=== PATIENT | female | born 1970 | race Caucasian/White ===

== ENCOUNTER 2021-02-13 11:06 | Day surgery (SDC) | payer OTHER ==
[2021-02-13 11:30] VITALS: TEMP 98.5
[2021-02-13] MEDS ORDERED: FERRIC CARBOXYMALTOSE 750 MG in SODIUM CHLORIDE 250 ML IVPB ONE (11:45)
[2021-02-13 13:30] VITALS: BP 150/69; PULSE 70
== END 2021-02-13 13:32 | disposition home or self-care (01) ==
LOC: FINFUSION 11:06 → FM/S 11:09 → FINFUSION 13:32
PROVIDERS: ATTEND Psychiatry & Neurology Psychiatry
PROC: 3E033GC Introduction of Other Therapeutic Substance into Peripheral Vein, Percutaneous Approach (ICD-10-PCS; principal; 2021-02-13)
DX: D50.9 Iron deficiency anemia, unspecified (principal)
CPT/HCPCS: 96365; J1439

== ENCOUNTER 2021-02-25 11:00 | Day surgery (SDC) | payer OTHER ==
[2021-02-25 11:34] VITALS: TEMP 97.5
[2021-02-25] MEDS ORDERED: FERRIC CARBOXYMALTOSE 750 MG in SODIUM CHLORIDE 250 ML IVPB ONE (12:00)
[2021-02-25 13:37] VITALS: BP 140/71; PULSE 60
== END 2021-02-25 14:05 | disposition home or self-care (01) ==
LOC: FINFUSION 11:00 → SUATTDRO 11:00 → FM/S 11:04 → FINFUSION 14:05
PROVIDERS: ATTEND Nurse Practitioner Acute Care
PROC: 3E033GC Introduction of Other Therapeutic Substance into Peripheral Vein, Percutaneous Approach (ICD-10-PCS; principal; 2021-02-25)
DX: D50.9 Iron deficiency anemia, unspecified (principal)
CPT/HCPCS: 96365; J1439